=== PATIENT | male | born 1980 | race Caucasian/White ===

== ENCOUNTER 2020-06-26 12:36 | Emergency (ER) | payer OTHER ==
[~2020-06-26] VITALS: Ht 188 cm; Wt 77.1 kg
[~2020-06-26 12:36] MED LIST: AZITHROMYCIN 2250 MG PO; CORTISPORIN OTI10 M2 OT; NAPROSYN500 MG PO; NOHOMEMEDICATIONS; NORFLEX100 MG PO
[2020-06-26 12:38] VITALS: BP 131/83
[2020-06-26] MEDS ORDERED: PREDNISONE 20 M20 M1 PO (13:01)
[2020-06-26] MEDS ORDERED: BACTRIM DS TAB1 EACH PO (13:01)
== END 2020-06-26 13:46 ==
LOC: M.ERS 12:36
DX: L25.9 Unspecified contact dermatitis, unspecified cause (principal); F17.210 Nicotine dependence, cigarettes, uncomplicated